=== PATIENT | female | born 1975 | race Caucasian/White ===

== ENCOUNTER 2018-10-18 07:56 | Emergency (ER) | payer BC ==
--- NOTE | 2018-10-18 08:45 | EDM.PDOC ---
<Lou Coleman M - Last Filed: 10/18/18 09:17> ED HPI GENERAL MEDICAL PROBLEM - General Chief Complaint: ENT Problem Stated Complaint: SORE THROAT Time Seen by Provider: 10/18/18 08:30 Source of Information: Reports: Patient History Limitations: Reports: No Limitations - History of Present Illness Onset: Gradual (has had 8 day history of sore throat, worsened in past two days) Location: Reports: Neck (throat) Quality: Reports: Stabbing Severity: Moderate Improves with: Reports: None Associated Symptoms: Reports: Headaches Treatments [employer]LE[employer]: Reports: Acetaminophen, Home Treatments, NSAIDS Throat Pain Score (Numeric/FACES): 8 - Related Data Allergies Allergy/AdvReac Type Severity Reaction Status Date / Time No Known Allergies Allergy Verified 10/18/18 08:21 Home Meds: Home Meds NK [No Known Home Meds] 09/04/13 [History] Past Medical History HEENT History: Reports: None [employer] History: Reports: - Infectious Disease History Infectious Disease History: Reports: Chicken Pox - Past Surgical History Head Surgeries/Procedures: Reports: None HEENT Surgical History: Reports: MARCELLA Social & Family History - Tobacco Use Smoking Status *Q: Never Smoker Second Hand Smoke Exposure: No - Caffeine Use Caffeine Use: Reports: Coffee, Soda - Recreational Drug Use Recreational Drug Use: No ED ROS ENT - Review of Systems Review Of Systems: ROS reveals no pertinent complaints other than HPI. Constitutional: Reports: No Symptoms Respiratory: Reports: No Symptoms Cardiovascular: Reports: No Symptoms GI/Abdominal: Reports: No Symptoms : Reports: No Symptoms Musculoskeletal: Reports: Other (diffuse myalgias) Skin: Reports: No Symptoms Neurological: Reports: No Symptoms Hematologic/Lymphatic: Reports: No Symptoms ED EXAM, ENT - Physical Exam Exam: See Below Exam Limited By: No Limitations General Appearance: Alert, WD/WN, No Apparent Distress Ears: Normal External Exam, Normal Canal, Hearing Grossly Normal, Normal TMs Nose: Normal Inspection, Normal Mucousa Mouth/Throat: Normal Inspection, Normal Oropharynx Head: Atraumatic, Normocephalic Neck: Normal Inspection, Supple, Full Range of Motion Respiratory/Chest: No Respiratory Distress, Lungs Clear, Normal Breath Sounds, No Accessory Muscle Use, Chest Non-Tender Extremities: Normal Range of Motion Neurological: Alert, Oriented, Normal Cognition, Normal Gait, No Motor/Sensory Deficits Psychiatric: Normal Affect, Normal Mood Skin: Warm, Dry, Intact, Normal Color, No Rash Lymphatic: No Adenopathy Course - Vital Signs Text/Narrative:: strep culture obtained. Last Recorded V/S: Last Vital Signs Temp 35.9 C 10/18/18 08:27 Pulse 65 10/18/18 08:27 Resp 16 10/18/18 08:27 BP 121/60 10/18/18 08:27 Pulse Ox 98 10/18/18 08:27 - Re-Assessments/Exams Free Text/Narrative Re-Assessment/Exam: 10/18/18 09:17 strep positive. Patient desires Rx to [facility] on site. Departure - Departure Disposition: Home, Self-Care 01 Clinical Impression: Strep pharyngitis - Discharge Information *PRESCRIPTION DRUG MONITORING PROGRAM REVIEWED*: Not Applicable *COPY OF PRESCRIPTION DRUG MONITORING REPORT IN PATIENT CHRYSTAL: Not Applicable Instructions: Strep Throat, [id number] Referrals: Mckayla Marcos PA [Primary Care Provider] - Forms: ED Department Discharge Additional Instructions: Instructed to take medication for full course. Continue with OTC analgesia and tylenol/ibuprofen as needed for comfort measures. To follow up with PCP in 3-4 days if no symptom improvement. <GabeSergio - Last Filed: 10/18/18 09:38> Course - Re-Assessments/Exams Free Text/Narrative Re-Assessment/Exam: As noted, patient presents with nearly 8 days of pharyngitis. On exam mild erythema on oropharynx No findings suggestive of deep space infection. Patient felt strongly about strep testing, as she has history of this. She is rapid strep positive, very well could just be colonized however feels strongly about antibiotic so prescribed amoxicillin Remainder as above per student stephen García my exam 10/18/18 09:25 Departure - Departure Time of Disposition: 09:23
== END 2018-10-18 09:31 | disposition home or self-care (01) ==
LOC: JP.ED 07:56
DX: J02.0 Streptococcal pharyngitis (principal)
CPT/HCPCS: 87430; 99283

== ENCOUNTER 2023-11-24 05:27 | Day surgery (SDC) | payer BC ==
[2023-11-24 06:03] LABS: HEMATOCRIT 40.9 % (34.3-46.0); HEMOGLOBIN 14.6 g/dL (11.2-15.5); MEAN CORPUSCULAR HEMOGLOBIN 31.1 pg (31.6-35.5); MEAN CORPUSCULAR HGB CONC 35.7 g/dL (31.6-35.5); MEAN CORPUSCULAR VOLUME 87.2 fL (81.4-99.0); RED BLOOD CELL COUNT 4.69 M/uL (3.77-5.24)
[2023-11-24 06:17] LABS: CALCIUM 8.5 mg/dL (8.5-10.1); CREATININE 0.9 mg/dL (0.6-1.0); EST CRCL DRUG DOSING (CG) 61.18 mL/min; POTASSIUM,K 3.7 mmol/L (3.6-5.2)
[2023-11-24 06:19] LABS: ANION GAP 11.7 mmol/L (5.0-14.0)
[2023-11-24] MEDS: Nozin Nasal Sanitizer NASBOTH ONE (06:37)
[2023-11-24] MEDS: Lactated Ringers 1,000 ML IV SCH (06:38)
[2023-11-24] MEDS ORDERED: Dexamethasone 4 MG/ML SDV ONE (06:49)
[2023-11-24] MEDS ORDERED: Propofol 200 MG/20 ML SDV ONE (06:49)
[2023-11-24] MEDS ORDERED: Ondansetron 4 MG/2 ML SDV ONE (06:49)
[2023-11-24] MEDS ORDERED: Midazolam 1 MG/ML 2 ML SDV ONE (06:49)
[2023-11-24] MEDS ORDERED: fentaNYL 250 MCG/5 ML SDV ONE (06:50)
[2023-11-24] MEDS: ceFAZolin 2 GM in Premix Bag 1 BAG IV ONE (07:50)
[2023-11-24] MEDS: Bupivacaine 0.5% 30 ML SDV ONE (08:20)
[2023-11-24] MEDS ORDERED: Ketorolac 30 MG/ML SDV ONE (08:34)
[2023-11-24] MEDS ORDERED: Acetaminophen/HYDROcodone 325-5 MG Tab PO PRN (09:44)
== END 2023-11-24 10:25 | disposition home or self-care (01) ==
LOC: JP.SDS 05:27
PROVIDERS: ATTEND Specialist
DX: S83.242A Other tear of medial meniscus, current injury, left knee, initial encounter (principal); X58.XXXA Exposure to other specified factors, initial encounter
CPT/HCPCS: 29882; 36415; 80048; 84703; 85027; A9270; C1713; J0665; J0690; J1100; J1885; J2250; J2405; J2704; J3010; J7120

== ENCOUNTER 2024-09-22 16:12 | Emergency (ER) | payer BC ==
[2024-09-22] MEDS ORDERED: Sodium Chloride 0.9% 10 ML Syringe FLUSH PRN (16:18)
[2024-09-22 16:24] LABS: BASOPHILS ABSOLUTE AUTO 0.06 K/uL (0.00-0.10); BASOPHILS PERCENT AUTO 0.6 % (0.1-1.3); EOSINOPHILS PERCENT AUTO 0.2 % (0.0-5.4); HEMATOCRIT 43.5 % (34.3-46.0); HEMOGLOBIN 15.2 g/dL (11.2-15.5); IMMATURE GRAN ABSOLUTE AUTO 0.05 K/uL (0.00-0.23); IMMATURE GRAN PERCENT AUTO 0.5 % (0.0-0.7); LYMPHOCYTES ABSOLUTE AUTO 2.17 K/uL (0.8-3.3); LYMPHOCYTES PERCENT AUTO 22.6 % (11.4-47.7); MEAN CORPUSCULAR HEMOGLOBIN 31.5 pg (31.6-35.5); MEAN CORPUSCULAR HGB CONC 34.9 g/dL (31.6-35.5); MEAN CORPUSCULAR VOLUME 90.2 fL (81.4-99.0); MONOCYTES ABSOLUTE AUTO 0.68 K/uL (0.20-0.90); MONOCYTES PERCENT AUTO 7.1 % (3.3-12.6); NEUTROPHILS ABSOLUTE AUTO 6.63 K/uL (1.0-7.6); PLATELET COUNT,PLT 191 K/uL (130-375); RED BLOOD CELL COUNT 4.82 M/uL (3.77-5.24); WHITE BLOOD CELL COUNT,WBC 9.6 K/uL (3.2-11.0)
[2024-09-22 16:25] LABS: EOSINOPHILS ABSOLUTE AUTO 0.02 K/uL (0.00-0.40)
[2024-09-22] MEDS: Iopamidol 755 Mg/ML 100 ML Bottle IV SCH (16:37)
[2024-09-22] MEDS: Sodium Chloride 0.9% 80 ML IV SCH (16:37)
[2024-09-22 16:41] LABS: PROTHROMBIN TIME 9.9 sec (9.2-10.6); PTT,PARTIAL THROMBOPLSTIN TIME 26.4 sec (21.8-27.3)
[2024-09-22 16:44] LABS: A/G RATIO 1.3 (1.2-2.2); ALANINE AMINOTRANSFERASE,ALT 24 U/L (12-78); ALBUMIN 4.3 g/dL (3.4-5.0); ALKALINE PHOSPHATASE 53 U/L (46-116); ASPARTATE AMNIOTRANSFERASE,AST 14 U/L (15-37); BILIRUBIN TOTAL 0.4 mg/dL (0.2-1.0); BLOOD UREA NITROGEN,BUN 21 mg/dL (7-18); CALCIUM 8.8 mg/dL (8.5-10.1); CARBON DIOXIDE,CO2 26 mmol/L (21-32); CHLORIDE,CL 101 mmol/L (100-108); CREATININE 0.9 mg/dL (0.6-1.0); EST CRCL DRUG DOSING (CG) 59.15 mL/min; ESTIMATED GFR 78 mL/min (>60); GLUCOSE RANDOM 88 mg/dL (74-106); POTASSIUM,K 3.9 mmol/L (3.6-5.2); PROTEIN TOTAL,TP 7.7 g/dL (6.4-8.2); SODIUM,NA 133 mmol/L (140-148)
[2024-09-22 16:45] LABS: ANION GAP 9.9 mmol/L (5.0-14.0)
[2024-09-22 16:46] LABS: TROPONIN I HIGH SENSITIVITY < 4.0 pg/mL (<=60.3)
[2024-09-22] MEDS ORDERED: Aspirin 325 MG Tab.EC PO ONE (17:56)
[2024-09-22] MEDS: Aspirin 81 MG Tab.Chew PO ONE (18:18)
== END 2024-09-22 19:23 ==
LOC: JP.ED 16:12
DX: G45.9 Transient cerebral ischemic attack, unspecified (principal)
CPT/HCPCS: 36415; 70450; 70496; 70498; 80053; 84484; 85025; 85610; 85730; 93005; 99285; A9270; Q9967